=== PATIENT | female | born 1980 | race African-American/Black ===

== ENCOUNTER 2020-03-12 16:13 | Emergency (ER) | payer OTHER ==
[~2020-03-12] VITALS: Ht 160 cm; Wt 113.8 kg
[2020-03-12 17:03] LABS: ABSOLUTE NEUTROPHILS 3.2 thou/uL (1.4-8.2); BASOPHILS 0.6 % (0.0-2.0); EOSINOPHILS 2.3 % (0.0-3.0); HEMATOCRIT 38.3 % (37.0-47.0); HEMOGLOBIN 12.8 gm/dL (12.0-15.0); LYMPHOCYTES 33.7 % (24.0-44.0); MCH 28.7 pg (26.0-34.0); MCHC 33.3 g/dL (28.0-37.0); MCV 86.1 fL (80.0-100.0); MONOCYTES 8.7 % (1.0-8.0); PLATELET COUNT 354 thou/uL (150-400); POLYS 54.7 % (36.0-66.0); RBC 4.44 mil/uL (4.20-5.00); RDW 14.3 % (10.5-14.5); WBC 5.9 thou/uL (4.0-11.0)
[2020-03-12 17:21] LABS: CALCIUM 9.1 mg/dL (8.5-10.1); POTASSIUM 3.7 mmol/L (3.5-5.1)
[2020-03-12 18:14] LABS: URINE BILIRUBIN NEGATIVE (Negative); URINE BLOOD NEGATIVE (Negative); URINE CLARITY CLEAR; URINE COLOR YELLOW; URINE GLUCOSE-RANDOM* NEGATIVE (Negative); URINE KETONES NEGATIVE (Negative); URINE LEUKOCYTES-REFLEX NEGATIVE (Negative); URINE NITRITE-REFLEX NEGATIVE (Negative); URINE PROTEIN (DIPSTICK) NEGATIVE (Negative); URINE UROBILINOGEN 0.2 E.U./dl (0.2-1.0)
[2020-03-12 20:03] VITALS: BP 130/82
--- NOTE | 2020-03-13 07:19 | EKG ---
[address] [place] [address] ELECTROCARDIOGRAM REPORT Name: DL MARTEL Room #: [facility] Yong#: [id number] Admission: 03/12/20 Attend Phys: Discharge: 03/12/20 Date of : 82 Report #: [id number] [facility] ED Test Date: 2020-03-12 Test Time: 16:20:05 Pat Name: DL MARTEL Department: Room: Gender: F Hydrostatic Tester: YOLANDA : 1980 Requested By: Gianni Garcia Order Number: [id number] MD: Marshall Valdivia Measurements Intervals [place] Rate: 69 P: 58 ME: 133 QRS: 23 QRSD: 88 T: 20 QT: 399 QTc: 428 Interpretive Statements Sinus rhythm Probable left atrial enlargement No previous ECG available for comparison Electronically Signed On 03-13-2020 7:19:35 [employer] by Marshall Valdivia [email or web address] <ELECTRONICALLY SIGNED> By: Marshall Valdivia MD, [facility] 03/13/20 0719 1620 1620 Marshall Valdivia MD, FACC /EPI
== END 2020-03-12 20:03 | disposition home or self-care (01) ==
LOC: ER 16:13
PROVIDERS: Nurse Practitioner
DX: R07.89 Other chest pain (principal); Z20.828 Contact with and (suspected) exposure to other viral communicable diseases; E66.9 Obesity, unspecified